=== PATIENT | female | born 1990 | race Caucasian/White ===

== ENCOUNTER 2018-05-24 06:28 | Day surgery (SDC) | payer MEDICAID ==
[2018-05-21 14:06] LABS: BASOPHILS # (AUTO) 0.1 X10'3 (0-0.2); BASOPHILS % (AUTO) 1.2 % (0-1); EOSINOPHILS # (AUTO) 0.2 X10'3 (0-0.9); EOSINOPHILS % (AUTO) 2.3 % (0-6); LYMPHOCYTES # (AUTO) 2.7 X10'3 (1.1-4.8); LYMPHOCYTES % (AUTO) 30.6 % (21-51); MEAN CORPUSCULAR HEMOGLOBIN 31.7 PG (27.0-31.0); MEAN CORPUSCULAR HGB CONC 33.5 % (33.0-36.5); MEAN CORPUSCULAR VOLUME 94.5 FL (78-98); MEAN PLATELET VOLUME 8.1 FL (7.4-10.4); MONOCYTES # (AUTO) 0.4 X10'3 (0-0.9); MONOCYTES % (AUTO) 4.1 % (2-12); NEUTROPHILS # (AUTO) 5.4 X10'3 (1.8-7.7); NEUTROPHILS % (AUTO) 61.8 % (42-75); PRE OP HEMATOCRIT 40.9 % (35.0-45.0); PRE OP HEMOGLOBIN 13.7 g/dL (12.0-16.0); PRE OP PLATELET COUNT 257 X10'3 (140-440); RED BLOOD COUNT 4.33 X10'6 (4.20-5.60); RED CELL DISTRIBUTION WIDTH 13.2 % (11.5-14.5)
[2018-05-21 14:40] LABS: HCG SERUM QL NEGATIVE
[~2018-05-24] VITALS: Ht 170.2 cm; Wt 75.6 kg
[2018-05-24] VITALS (11 sets, daily range): BP systolic 114–127; BP diastolic 65–96
[~2018-05-24 06:28] MED LIST: NO HOME MEDS; famotidine 20mg tablet PO ONE; ringers solution, lacted 1,000 ML IV SCH
[2018-05-24] MEDS ORDERED: ROPIVAcaine 0.5% (5mg/ml) 30ml vial ONE ×2 (06:44→10:26)
[2018-05-24] MEDS ORDERED: ringers solution, lacted 1,000 ML IV SCH (07:51)
[2018-05-24] MEDS ORDERED: meperidine/PF 25mg/ml syringe IV PRN ×2 (07:55)
[2018-05-24] MEDS ORDERED: morphine 4 MG/ML inj SYRINge IV PRN ×2 (07:55)
[2018-05-24] MEDS ORDERED: proCHLORperazine 10 MG/2 ml inj IV PRN (07:55)
[2018-05-24] MEDS ORDERED: ondansetron/PF 4mg/2ml inj IV PRN (07:55)
[2018-05-24] MEDS ORDERED: HYDROmorphone inj. 0.5 MG/0.5 ML DISP.SYRIN IV ONE (08:05)
[2018-05-24] MEDS ORDERED: fentaNYL/PF 50MCG/1 ML 2ML syringe ONE (09:30)
[2018-05-24] MEDS ORDERED: midazolam 2 mg/2 ml injection ONE (09:31)
[2018-05-24] MEDS ORDERED: propofol inj 20 ML IV ONE (09:32)
[2018-05-24] MEDS ORDERED: sevoflurane 250ml liquid IH ONE (09:32)
[2018-05-24] MEDS ORDERED: LIDOcaine 2% (20mg/ml) 5ml vial ONE (09:32)
[2018-05-24] MEDS ORDERED: rocuronium 10mg/ml inj IV ONE (09:34)
[2018-05-24] MEDS ORDERED: ketorolac trometh. 30mg/ml inj. ONE (09:53)
[2018-05-24] MEDS ORDERED: ondansetron/PF 4mg/2ml inj ONE (09:53)
[2018-05-24] MEDS ORDERED: sodium bicarbonate 1 MEQ/1 ml inj ONE (10:26)
[2018-05-24] MEDS ORDERED: dexamethasone sod phosphate 4mg/ml inj. ONE (10:27)
[2018-05-24] MEDS ORDERED: neostigmine methylsulfate 1 MG/ML 10ml vial ONE (10:42)
[2018-05-24] MEDS ORDERED: glycopyrrolate 0.2mg/ml inj ONE (10:42)
--- NOTE | 2018-05-24 10:42 | NUR ---
Received from OR via [facility] , accompanied by Anesthesiologist DR OJEDA and report given by Anesthesiologist. PT W/UMBILICAL LAP SITE W/BANDAID CDI, PT PAINFUL, EMMY'S, 25 MG DEMEROL GIVEN FOR PAIN. Addendum: 05/24/18 at 1106 by Junie Vee RN Amended: Links added.
[2018-05-24] MEDS: meperidine/PF 25mg/ml syringe IV PRN ×2 (10:49→11:04)
[2018-05-24] MEDS ORDERED: HYDROcodone/acetaminophen 10/325mg tab PO ONE ×2 (11:05)
== END 2018-05-24 12:12 | disposition home or self-care (01) ==
LOC: PAS 06:28
PROVIDERS: ATTEND Obstetrics & Gynecology
DX: N71.1 Chronic inflammatory disease of uterus (principal); N94.4 Primary dysmenorrhea; K65.9 Peritonitis, unspecified; N30.10 Interstitial cystitis (chronic) without hematuria; F17.210 Nicotine dependence, cigarettes, uncomplicated; Z79.891 Long term (current) use of opiate analgesic; Z86.14 Personal history of Methicillin resistant Staphylococcus aureus infection; Z88.1 Allergy status to other antibiotic agents; Z87.442 Personal history of urinary calculi; Z88.5 Allergy status to narcotic agent; Z88.2 Allergy status to sulfonamides; Z88.0 Allergy status to penicillin; Z88.8 Allergy status to other drugs, medicaments and biological substances; Z79.899 Other long term (current) drug therapy; Z98.890 Other specified postprocedural states; Z80.3 Family history of malignant neoplasm of breast; Z80.41 Family history of malignant neoplasm of ovary; Z83.3 Family history of diabetes mellitus
CPT/HCPCS: 36415; 49321; 51720; 82948; 84703; 85025; 86885; 86900; 86901; J1100; J1170; J1885; J2001; J2175; J2250; J2405; J2704; J2710; J3010; J7120; A4355; A6250; A7000; J2795; J3490; J7030